=== PATIENT | female | born 1965 | race Caucasian/White ===

== ENCOUNTER 2020-07-20 19:42 | Emergency (ER) | payer OTHER ==
[~2020-07-20] VITALS: Ht 162.6 cm; Wt 92.0 kg
[2020-07-20] MEDS ORDERED: ALPRAZOLAM0.5 MG PO (19:55)
[2020-07-20] MEDS ORDERED: ZOFRAN4 MG PO (19:55)
[2020-07-20] MEDS ORDERED: RIZATRIPTAN10 MG PO (19:56)
[2020-07-20] MEDS ORDERED: HYDROCODON-ACE1 EA13 PO (19:56)
[2020-07-20] MEDS ORDERED: METHOCARBAMOL750 MG PO (19:56)
[2020-07-20] MEDS ORDERED: GABAPENTIN300 MG PO (19:56)
[2020-07-20] MEDS ORDERED: GABAPENTIN600 MG PO (19:57)
[2020-07-20] MEDS ORDERED: ZESTORETIC 20-1 EAC1 PO (19:57)
[2020-07-20] MEDS ORDERED: ZYRTEC10 MG PO (19:57)
[2020-07-20] MEDS ORDERED: PROPRANOLOL HCL20 MG PO (19:57)
[2020-07-20] MEDS ORDERED: MONTELUKAST SOD10 MG PO (19:58)
[2020-07-20] MEDS ORDERED: TOPIRAMATE50 MG PO (19:58)
[2020-07-20] MEDS ORDERED: WELLBUTRIN XL150 MG PO (19:58)
[2020-07-20] MEDS ORDERED: SIMVASTATIN20 MG PO (19:58)
== END 2020-07-20 20:33 | disposition home or self-care (01) ==
LOC: ED 19:42
DX: S61.211A Laceration without foreign body of left index finger without damage to nail, initial encounter (principal); E11.9 Type 2 diabetes mellitus without complications; I10 Essential (primary) hypertension; G43.909 Migraine, unspecified, not intractable, without status migrainosus; F17.200 Nicotine dependence, unspecified, uncomplicated; Z79.899 Other long term (current) drug therapy; Z79.891 Long term (current) use of opiate analgesic; W26.8XXA Contact with other sharp object(s), not elsewhere classified, initial encounter
CPT/HCPCS: 12001; 90471; 90715; 99282-25

== ENCOUNTER 2020-12-28 06:53 | Day surgery (SDC) | payer OTHER ==
[~2020-12-28] VITALS: Ht 162.6 cm; Wt 88.4 kg
[~2020-12-28 06:53] MED LIST: ALPRAZOLAM0.5 MG PO; GABAPENTIN300 MG PO; GABAPENTIN600 MG PO; HYDROCODON-ACE1 EA13 PO; METHOCARBAMOL750 MG PO; MONTELUKAST SOD10 MG PO; PROPRANOLOL HCL20 MG PO; RIZATRIPTAN10 MG PO; SIMVASTATIN20 MG PO; TOPAMAX100 MG PO; TOPIRAMATE50 MG PO; WELLBUTRIN XL150 MG PO; ZESTORETIC 20-1 EAC1 PO; ZOFRAN4 MG PO; ZYRTEC-D TABLE1 EACH PO; ZYRTEC10 MG PO
--- NOTE | 2020-12-28 08:51 | NUR ---
12/28/20 0851 Binta Woodruff 0848 PATIENT ARRIVES TO PACU AWAKE BUT VERY DROWSY. SLEEPING WHEN NOT STIMULATED. RESP EVEN AND UNLABORED, NC AT 3 LITERS, SATS >94%.
--- NOTE | 2020-12-29 07:46 | OR ---
[facility] [address], [place] [address] Signed DATE OF OPERATION: 12/28/2020 SURGEON: Xochitl Jefferson MD PREOPERATIVE DIAGNOSIS: 1. Father with rectal cancer at age 60. POSTOPERATIVE DIAGNOSES: 1. 4 mm polyps x2 at 80 cm. 2. 8 mm polyp at 10 cm (snare, tattoo). 3. 5 mm polyp at 32 cm. 4. Minimal to moderate sigmoid diverticulosis. PROCEDURE: Colonoscopy with hot biopsy, snare polypectomy and injection of tattoo. ESTIMATED BLOOD LOSS: None. INDICATIONS: Cassy is a 55-year-old female who is a diet-controlled prediabetic patient. She was asked to see me for her initial colonoscopy. Her father was first diagnosed with rectal cancer at age 60. He has been through several surgeries as well as chemo and radiation therapy. She has no lower GI complaints. She has never had a previous colonoscopy. I gave her a pamphlet on colonoscopy in the office. We had reviewed that in detail. She understands the nature of that test. There is risk including, but not limited to gas bloating, crampy abdominal pain, bleeding, perforation requiring surgery, and missed diagnosis. She also understands the need for IV conscious sedation. She had expressed understanding and wished to proceed. PROCEDURE NOTE: Cassy was taken into our endoscopy suite and placed in the left lateral decubitus position. She was given IV sedation with 6 mg of Versed and 100 mcg of fentanyl. A digital rectal exam was performed and this was unremarkable. The adult colonoscope was introduced and advanced under direct visualization of camera without difficulty into the cecum. Her prep was good. We could easily see the appendiceal orifice and the ileocecal valve. The scope was then slowly withdrawn. We took pictures throughout for photodocumentation. The above-mentioned polyps were taken out with the help of hot biopsy forceps. We did need the help of the snare for the polyp at 10 cm. We also left a tattoo at that area. We did not use the rigid proctoscope on this occasion. We did Electronically Signed By: XOCHITL JEFFERSON MD 12/29/20 0746 PATIENT NAME: CASSY WASHINGTON OPERATIVE REPORT DATE OF : 65 REPORT #: [id number] PHYSICIAN: XOCHITL JEFFERSON MD PCP: YOVANA CARTWRIGHT PA-C REPORT IS CONFIDENTIAL AND NOT TO BE RELEASED WITHOUT AUTHORIZATION [facility] [address], [place] [address] Signed see diverticula in her sigmoid colon. They were minimal to moderate in size. They were minimal to moderate in number and scattered about. The scope had been retroflexed in the rectum and there was no additional pathology noted above the anal canal. After this, the gas was suctioned out and the colonoscope removed. Cassy tolerated the procedure quite well. RECOMMENDATIONS: I will see Cassy back in my office in 7 to 14 days to review her results. MD CHANI Rosen/JULITOL /[id number] cc: MD Yovana Rosen PA-C Copies: XOCHITL JEFFERSON MD, CHLOE K PA-C ~ Electronically Signed By: XOCHITL JEFFERSON MD 12/29/20 0746 PATIENT NAME: CASSY WASHINGTON OPERATIVE REPORT DATE OF : 65 REPORT #: [id number] PHYSICIAN: XOCHITL JEFFERSON MD PCP: YOVANA CARTWRIGHT PA-C REPORT IS CONFIDENTIAL AND NOT TO BE RELEASED WITHOUT AUTHORIZATION
--- NOTE | 2020-12-29 16:01 | PATH ---
[facility] [address], [place] [address] Signed SPECIMEN(S): A COLON POLYP AT 8 CM X2 SPECIMEN(S): B COLON POLYP AT 10 CM SPECIMEN(S): C COLON POLYP AT 32 CM SPECIMEN SOURCE: A. COLON POLYP AT 8 CM X2 B. COLON POLYP AT 10 CM C. COLON POLYP AT 32 CM CLINICAL HISTORY: Screening colonoscopy. DX: Polyps, divertic. MICROSCOPIC DESCRIPTION: Histologic sections of all submitted blocks are examined by light microscopy. These findings, together with the gross examination, support the pathologic diagnosis. FINAL PATHOLOGIC DIAGNOSIS: A. Colon, polyp x2 at 8 cm, polypectomy: - Hyperplastic polyp. - Cauterized colonic mucosa with focal hyperplastic changes. - Negative for dysplasia or malignancy. B. Colon, polyp at 10 cm, polypectomy: - Tubular adenoma. - Negative for high-grade dysplasia or malignancy. C. Colon, polyp at 32 cm, polypectomy: - Tubular adenoma. - Negative for high-grade dysplasia or malignancy. NAL:smn:C2NR GROSS DESCRIPTION: Three specimens are received in three containers, labeled "TM." A. The specimen, labeled "TM, 1," and designated on the requisition "colon polyp at 8 cm," is received in formalin and consists of two wright soft tissue fragments that measure 0.3 cm in greatest dimension. The specimen is entirely submitted in cassette (A1). B. The specimen, labeled "TM, 2," and designated on the requisition "colon polyp at 10 cm," is received in formalin and consists of one polypoid, wright soft tissue fragment that measures 0.9 x 0.6 x 1.0 cm. The specimen is inked black, trisected and entirely submitted in cassette (B1). C. The specimen, labeled "TM, 3," and designated on the requisition "colon PATIENT NAME: RORY WASHINGTON PATHOLOGY DATE OF : 65 REPORT #: [id number] PHYSICIAN: [facility] PATHOLOGY PCP: MEI CARTWRIGHT PA-C REPORT IS CONFIDENTIAL AND NOT TO BE RELEASED WITHOUT AUTHORIZATION [facility] [address], [place] [address] Signed polyp at 32 cm," is received in formalin and consists of one wright soft tissue fragment that measures 0.3 cm in greatest dimension. The specimen is entirely submitted in cassette (C1). AT (under the direct supervision of a pathologist) The Gross Description was prepared using a voice recognition system. The report was reviewed for accuracy; however, sound-alike word errors, addition and/or deletions may occur. If there is any question about this report, please contact Client Services. PERFORMING LABORATORY: The technical component was performed by [facility], [address] [place] [address] (Clinical Engineering Manager: Delia Galindo MD; CLIA# [id number]). Professional interpretation was performed by [facility], [address] [address] (CLIA# [id number]). Diagnostician: Adriana Carrera MD Pathologist Electronically Signed 12/29/2020 Copies: ~ PATIENT NAME: RORY WASHINGTON PATHOLOGY DATE OF : 65 REPORT #: [id number] PHYSICIAN: KYLAH PATHOLOGY PCP: MEI CARTWRIGHT PA-C REPORT IS CONFIDENTIAL AND NOT TO BE RELEASED WITHOUT AUTHORIZATION
== END 2020-12-28 09:20 | disposition home or self-care (01) ==
LOC: OPS 06:53 → DS 06:53 → OPS 08:15 → DS 08:15 → OPS 09:20 → DS 12-30 06:45
PROVIDERS: ATTEND Colon & Rectal Surgery
PROC: 0DBE8ZX Excision of Large Intestine, Via Natural or Artificial Opening Endoscopic, Diagnostic (ICD-10-PCS; 2020-12-28)
PROC: 3E0H8KZ Introduction of Other Diagnostic Substance into Lower GI, Via Natural or Artificial Opening Endoscopic (ICD-10-PCS; 2020-12-28)
PROC: 0DBE8ZX Excision of Large Intestine, Via Natural or Artificial Opening Endoscopic, Diagnostic (ICD-10-PCS; principal; 2020-12-28 08:15)
DX: D12.6 Benign neoplasm of colon, unspecified (principal); K57.30 Diverticulosis of large intestine without perforation or abscess without bleeding; Z80.0 Family history of malignant neoplasm of digestive organs; E11.9 Type 2 diabetes mellitus without complications; I10 Essential (primary) hypertension; E78.5 Hyperlipidemia, unspecified; E66.9 Obesity, unspecified; Z68.33 Body mass index [BMI] 33.0-33.9, adult; Z91.030 Bee allergy status
CPT/HCPCS: 99153; G0500; J2250; J3010; J7121

== ENCOUNTER 2021-10-29 16:13 | Emergency (ER) | payer OTHER ==
[~2021-10-29] VITALS: Ht 162.6 cm; Wt 89.3 kg
--- OUTSIDE RECORDS SUMMARY | 2021-10-29 16:16 | XMS ---
PreManage Notification: RORY WASHINGTON Security Inspector Missile Events No recent Security Events currently on file CRITERIA MET - [employer] CARE PROVIDERS MEI CARTWRIGHT Physician Banquet Houseperson 06/30/2020-Current PHONE: [phone] Etienne has no Care Guidelines for this patient. EPilar VISIT COUNT (12 MO.) 1 [facility] TOTAL 1 NOTE: Visits indicate total known visits. ED/UCC VISIT TRACKING (12 MO.) 10/29/2021 16:15 [facility] [place] TYPE: Emergency COMPLAINT: - MULTIPLE COMPLAINTS INPATIENT VISIT TRACKING (12 MO.) No inpatient visits to display in this time frame [id number]
[2021-10-29] MEDS ORDERED: NORTRIPTYLINE H10 MG PO (17:03)
[2021-10-29] MEDS ORDERED: ZOLMITRIPTAN5 MG PO (17:03)
[2021-10-29] MEDS ORDERED: VITAMIN D21250 MCG (17:04)
== END 2021-10-30 00:40 | disposition home or self-care (01) ==
LOC: ED 16:13
DX: U07.1 COVID-19 (principal); E11.9 Type 2 diabetes mellitus without complications; I10 Essential (primary) hypertension; F17.200 Nicotine dependence, unspecified, uncomplicated; Z91.030 Bee allergy status; Z79.899 Other long term (current) drug therapy
CPT/HCPCS: 36415; 71045; 80053; 81001; 83605; 85025; 85060; 85379; 87502; A9270; C9803; J7030; J7121; U0003

== ENCOUNTER 2021-12-02 06:05 | Day surgery (SDC) | payer OTHER ==
[~2021-12-02] VITALS: Ht 162.6 cm; Wt 88.6 kg
[~2021-12-02 06:05] MED LIST changes: +NORTRIPTYLINE H10 MG PO; +VITAMIN D21250 MCG; +ZOLMITRIPTAN5 MG PO
[2021-12-02] MEDS ORDERED: HYDROCODON-ACE1 EA10 PO (08:23)
--- NOTE | 2021-12-02 09:16 | NUR ---
12/02/21 0916 Quin Ray 0822 PT ARRIVED IN PACU SLEEPY WITH NO C/O'S. R HAND ELEVATED ON PILLOW AND ICE PLACED. 0845 SITTING UP IN BED SIPPING ON WATER. 902 DC INSTRUCTIONS GIVEN. ALL QUESTIONS ANSWERED. LEFT VIA W/C WITH SLING IN PLACE.
--- NOTE | 2021-12-03 08:55 | OR ---
[facility] [address] [place], [place] [address] Signed DATE OF OPERATION: 12/02/2021 SURGEON: Cassy Wu MD PREOPERATIVE DIAGNOSIS: Carpal tunnel syndrome, right. POSTOPERATIVE DIAGNOSIS: Carpal tunnel syndrome, right. PROCEDURE PERFORMED: Carpal tunnel release, right. BRICK WHEELER: None. ANESTHESIA: Kerry block. TOURNIQUET TIME: 12 minutes. BRIEF HISTORY: Cassy is a 56-year-old female with pain and numbness in her hand. Nonoperative treatment was ineffective and she wished to proceed with operative treatment after nerve conduction studies confirmed significant carpal tunnel. The risks, benefits, and alternatives were discussed at length. She understands and wished to proceed. DESCRIPTION OF PROCEDURE: Once consent was obtained, she was taken to the operating room. After adequate anesthesia, she was left on day surgery bed and hand table was brought in. The arm was prepped and draped in a standard sterile fashion. The carpal tunnel was approached through a 1.5 cm incision in the distal wrist crease. This was carried through the skin and subcutaneous tissue. The palmaris longus was retracted and protected. The transverse carpal ligament was identified under loupe magnification and dissected free of overlying soft tissue proximally and distally. It was then transected using the tenotomy scissors and released proximally a cm and distally to the distal extent. This was palpated using a [place] and found to be completely released. The wound was copiously irrigated with normal saline, closed with 3-0 nylon and injected with 8 mL of 0.25% Marcaine plain. The wound was dressed with bacitracin, Adaptic, 4 x 8s, and gauze. She Electronically Signed By: CASSY WU MD 12/03/21 0855 PATIENT NAME: CASSY WASHINGTON OPERATIVE REPORT DATE OF : 65 REPORT #: [id number] PHYSICIAN: CASSY WU MD PCP: MEI CARTWRIGHT PA-C REPORT IS CONFIDENTIAL AND NOT TO BE RELEASED WITHOUT AUTHORIZATION [facility] [address] [place], [place] [address] Signed tolerated the procedure well. All sponge, needle, and instrument counts were correct. Cassy Wu MD BA/MODL /[id number] Copies: ~ Electronically Signed By: CASSY WU MD 12/03/21 0855 PATIENT NAME: CASSY WASHINGTON OPERATIVE REPORT DATE OF : 65 REPORT #: [id number] PHYSICIAN: CASSY WU MD PCP: MEI CARTWRIGHT PA-C REPORT IS CONFIDENTIAL AND NOT TO BE RELEASED WITHOUT AUTHORIZATION
== END 2021-12-02 09:03 | disposition home or self-care (01) ==
LOC: DS 06:05
PROVIDERS: ATTEND Specialist
PROC: 01N50ZZ Release Median Nerve, Open Approach (ICD-10-PCS; principal; 2021-12-02 09:30)
DX: G56.01 Carpal tunnel syndrome, right upper limb (principal); Z87.891 Personal history of nicotine dependence
CPT/HCPCS: J0690; J1885; J2704; J7121

== ENCOUNTER 2022-02-03 05:30 | Day surgery (SDC) | payer OTHER ==
[~2022-02-03] VITALS: Ht 162.6 cm; Wt 89.5 kg
[~2022-02-03 05:30] MED LIST changes: +HYDROCODON-ACE1 EA10 PO
[2022-02-03] MEDS ORDERED: HYDROCODON-ACE1 EA10 PO (07:30)
--- NOTE | 2022-02-03 07:33 | NUR ---
02/03/22 0733 Binta Woodruff 07 PATIENT ARRIVES TO PACU RESTING WITH EYES CLOSED. OPENS EYES AND ANSWERS QUESTIONS APPROPRIATELY WITH VERBAL STIMULI, BACK TO SLEEP WHEN NOT STIMULATED. RESP EVEN AND UNLABORED, SATS 100% ON 6L VIA MASK. OXYGEN OFF.
--- NOTE | 2022-02-06 08:36 | OR ---
[facility] [address] [place], [place] [address] Signed DATE OF OPERATION: 02/03/2022 SURGEON: Cassy Wu MD PREOPERATIVE DIAGNOSIS: Carpal tunnel syndrome, left. POSTOPERATIVE DIAGNOSIS: Carpal tunnel syndrome, left. PROCEDURE PERFORMED: Left carpal tunnel release. BULLDOZER OPERATOR: None. ANESTHESIA: Kerry block. TOURNIQUET TIME: 20 minutes. BRIEF HISTORY: Cassy is a 56-year-old female with bilateral carpal tunnel. She had undergone successful right release and wished to proceed with the left. Risks and benefits of operative treatment were discussed. Once again, she elected to proceed. Once consent was obtained, she was taken to the operating room. After adequate anesthesia, she was kept on day surgery bed on the hand table. The hand was prepped and draped in a standard sterile fashion after establishment of the Kerry block. The carpal tunnel was approached through a 1.5 cm incision in the distal wrist crease. This was carried through skin and subcutaneous tissue and directly down onto the transverse carpal ligament. The remnants of the palmaris longus were identified, retracted, and protected. The transverse carpal ligament was dissected free of overlying soft tissue under loupe magnification, the ligament was then transected proximally a centimeter and distally to the distal extent. This was done with care taken to protect the median nerve. The canal was palpated and found to be completely released. The wound was copiously irrigated with normal saline, closed with 3-0 nylon and injected with 5 mL of 0.25% plain Marcaine. It was then dressed with bacitracin, Adaptic, 4x8's, and gauze. She tolerated the procedure well. All sponge, needle, and instrument counts were correct. Electronically Signed By: CASSY WU MD 02/06/22 0836 PATIENT NAME: CASSY WASHINGTON OPERATIVE REPORT DATE OF : 65 REPORT #: [id number] PHYSICIAN: CASSY WU MD PCP: MEI CARTWRIGHT PA-C REPORT IS CONFIDENTIAL AND NOT TO BE RELEASED WITHOUT AUTHORIZATION [address] [place] [address] Signed Cassy Wu MD BA/MODL /[id number] Copies: ~ Electronically Signed By: CASSY WU MD 02/06/22 0836 PATIENT NAME: CASSY WASHINGTON OPERATIVE REPORT DATE OF : 65 REPORT #: [id number] PHYSICIAN: CASSY WU MD PCP: MEI CARTWRIGHT PA-C REPORT IS CONFIDENTIAL AND NOT TO BE RELEASED WITHOUT AUTHORIZATION
== END 2022-02-03 08:00 | disposition home or self-care (01) ==
LOC: DS 05:30
PROVIDERS: ATTEND Specialist
PROC: 01N50ZZ Release Median Nerve, Open Approach (ICD-10-PCS; principal; 2022-02-03 07:30)
DX: G56.02 Carpal tunnel syndrome, left upper limb (principal); Z91.030 Bee allergy status; E11.9 Type 2 diabetes mellitus without complications; Z90.710 Acquired absence of both cervix and uterus
CPT/HCPCS: J0690; J2250; J2405; J2704; J7121

== ENCOUNTER 2023-03-22 22:05 | Emergency (ER) | payer OTHER ==
[~2023-03-22] VITALS: Ht 162.6 cm; Wt 89.0 kg
--- OUTSIDE RECORDS SUMMARY | ~2023-03-22 | XMS | Continuity of Care Document ---
Demographics + + + | Address | [address] | | | [place] [address] | + + + | Preferred Language | Unknown | + + + | Marital Status | Never | + + + | Druze Affiliation | Unknown | + + + | Race | White | + + + | Ethnic Group | Not or | + + + Author + + + | Author | [facility] | + + + | Organization | [facility] | + + + | Address | [address] | | | [place] [address] | + + + | Phone | | + + + Care Team Providers + + + + | Care Mine Deputy Name | Role | Phone | + + + + Unavailable | Unavailable | + + + + Unavailable | Unavailable | + + + + Unavailable | Unavailable | + + + + Allergies No information. Encounters No information. Functional Status No information. Immunizations No information. Medications + + + + | date | description | facility | + + + + | 2023-01-18 00:00 | alprazolam 0.5 mg oral | [facility] | | | tablet | Office Building | + + + + | 2023-01-18 00:00 | Drug or medicament | [facility] | | | (substance) | Office Building | + + + + | 2023-01-18 00:00 | calcium carbonate 1500 mg | [facility] | | | (calcium 600 mg) / vitamin | Office Building | | | d3 10 mcg (400 unt) oral | | | | tablet | | + + + + | 2023-01-17 00:00 | onabotulinumtoxina 100 unt | [facility] | | | injection [botox] | Office Building | + + + + Problems + + + + | date | description | facility | + + + + | 2023-01-17 11:16:06 | Chronic migraine without | [facility] | | | aura, intractable, without | [facility] | | | status migrainosus | | + + + + Procedures + + + + | date | description | facility | + + + + | 2023-01-17 00:00 | NV DESTROY NERVE,MSCL | [facility] | | | INNERVATED, BILAT | Office Building | + + + + Results/Labs No information. Social History + + + + | date | description | facility | + + + + | 2023-01-18 00:00 | Current smoker | [facility] | | | | Office Building | + + + + Vital Signs + + +---------+---------+ | date | measurement | value | units | + + +---------+---------+ | 2023-01-17 00:00 | BMI | 33.64 | kg/m2 | + + +---------+---------+ | 2023-01-17 00:00 | BP_diastolic | 60 | mmHg | + + +---------+---------+ | 2023-01-17 00:00 | BP_systolic | 90 | mmHg | + + +---------+---------+ | 2023-01-17 00:00 | heart_rate | 78 | /min | + + +---------+---------+ | 2023-01-17 00:00 | height_metric | 162.6 | cm | + + +---------+---------+ | 2023-01-17 00:00 | height_standard | 64.02 | in | + + +---------+---------+ | 2023-01-17 00:00 | weight_metric | 88.91 | kg | + + +---------+---------+ | 2023-01-17 00:00 | weight_standard | 196 | lb | + + +---------+---------+"
[2023-03-23 01:54] VITALS: BP 118/76
== END 2023-03-23 01:55 | disposition home or self-care (01) ==
LOC: ED 22:05
DX: S63.502A Unspecified sprain of left wrist, initial encounter (principal); I10 Essential (primary) hypertension; F17.200 Nicotine dependence, unspecified, uncomplicated; Z91.030 Bee allergy status; Z79.899 Other long term (current) drug therapy; W01.0XXA Fall on same level from slipping, tripping and stumbling without subsequent striking against object, initial encounter
CPT/HCPCS: 73110; 99283-25; A9270

== ENCOUNTER 2023-05-17 10:36 | Emergency (ER) | payer OTHER ==
[~2023-05-17] VITALS: Ht 162.6 cm; Wt 92.6 kg
--- OUTSIDE RECORDS SUMMARY | ~2023-05-17 | XMS | Continuity of Care Document ---
Demographics + + + | Address | [address] | | | [place] [address] | + + + | Preferred Language | Unknown | + + + | Marital Status | Never | + + + | Anabaptist Affiliation | Unknown | + + + | Race | White | + + + | Ethnic Group | Not or | + + + Author + + + | Author | [facility] | + + + | Organization | [facility] | + + + | Address | [address] | | | [place] [address] | + + + | Phone | | + + + Care Team Providers + + + + | Care Commercial Loan Manager Name | Role | Phone | + [...] facility | + + + + | 2023-03-12 00:00 | vitamin b2 100 mg oral | [facility] | | | tablet | Office Building | + + + + | 2023-04-12 00:00 | alprazolam 0.5 mg oral | [facility] | | | tablet | Office Building | + + + + | 2023-04-12 00:00 | Drug or medicament | [facility] | | | (substance) | Office Building | + + + + | 2023-04-12 00:00 | calcium carbonate 1500 mg | [facility] | | | (calcium 600 mg) / vitamin | Office Building | | | d3 10 mcg (400 unt) oral | | | | tablet | | + + + + | 2023-04-11 00:00 | onabotulinumtoxina 100 unt | [facility] | | | injection [botox] | Office Building | + + + + Problems + + + + | date | description | facility | + + + + | 2023-04-11 10:55:03 | Chronic migraine without | [facility] | | | aura, intractable, without | [facility] | | | status migrainosus | | + + + + Procedures + + + + | date | description | facility | + + + + | 2023-04-11 00:00 | CA DESTROY NERVE,MSCL | [facility] | | | INNERVATED, BILAT | Office Building | + + + + Results/Labs No information. Social History + + + + | date | description | facility | + + + + | 2023-04-12 00:00 | Current smoker | [facility] | | | | Office Building | + + + + Vital Signs + + +---------+---------+ | date | measurement | value | units | + + +---------+---------+ | 2023-04-11 00:00 | BMI | 32.96 | kg/m2 | + + +---------+---------+ | 2023-04-11 00:00 | BP_diastolic | 80 | mmHg | + + +---------+---------+ | 2023-04-11 00:00 | BP_systolic | 120 | mmHg | + + +---------+---------+ | 2023-04-11 00:00 | heart_rate | 64 | /min | + + +---------+---------+ | 2023-04-11 00:00 | height_metric | 162.6 | cm | + + +---------+---------+ | 2023-04-11 00:00 | height_standard | 64.02 | in | + + +---------+---------+ | 2023-04-11 00:00 | weight_metric | 87.09 | kg | + + +---------+---------+ | 2023-04-11 00:00 | weight_standard | 192 | lb | + + +---------+---------+"
--- OUTSIDE RECORDS SUMMARY | 2023-05-17 10:38 | XMS ---
PreManage Notification: RORY WASHINGTON Security Stars Analytical Lead Events No recent Security Events currently on file [facility] There are no care providers on record at this time. Etienne has no Care Guidelines for this patient. Toni VISIT COUNT (12 MO.) 2 [facility] Due[facility] TOTAL 2 NOTE: Visits indicate total known visits. ED/C VISIT TRACKING (12 MO.) 05/17/2023 10:36 [facility] TYPE: Emergency COMPLAINT: - COLD SUMPTOMS 03/22/2023 22:05 [facility] TYPE: Emergency COMPLAINT: - LT WRIST INJURY DIAGNOSES: - Bee allergy status - Essential (primary) hypertension - Fall on same level from slipping, tripping and stumbling without subsequent striking against object, initial encounter - Nicotine dependence, unspecified, uncomplicated - Other senior living (current) drug therapy - Pain in left wrist - Unspecified sprain of left wrist, initial encounter INPATIENT VISIT TRACKING (12 MO.) 04/19/2023 05:32 [facility] Aidee GOMEZ ([facility]) TYPE: Surgical Services DIAGNOSES: - Arthrodesis status - Essential (primary) hypertension - Other idiopathic scoliosis, lumbar region - Other intervertebral disc degeneration, lumbar region - Other intervertebral disc displacement, lumbar region - Radiculopathy, lumbar region - Scoliosis, unspecified - Spinal stenosis, lumbar region with neurogenic claudication - Spondylosis without myelopathy or radiculopathy, lumbar region - Type 2 diabetes mellitus without complications [id number]
[2023-05-17] MEDS ORDERED: OXYCODONE-ACET1 EAC1 PO (10:50)
[2023-05-17] MEDS ORDERED: BENZONATATE100 MG PO (10:58)
[2023-05-17 11:11] VITALS: BP 155/81
== END 2023-05-17 11:12 | disposition home or self-care (01) ==
LOC: ED 10:36
DX: J10.1 Influenza due to other identified influenza virus with other respiratory manifestations (principal); M54.9 Dorsalgia, unspecified; I10 Essential (primary) hypertension; E11.9 Type 2 diabetes mellitus without complications; F41.9 Anxiety disorder, unspecified; F32.A Depression, unspecified; F17.200 Nicotine dependence, unspecified, uncomplicated; Z96.7 Presence of other bone and tendon implants; Z91.030 Bee allergy status; Z79.899 Other long term (current) drug therapy
CPT/HCPCS: 99283

== ENCOUNTER 2024-01-16 18:53 | Emergency (ER) | payer OTHER ==
[~2024-01-16] VITALS: Ht 162.6 cm; Wt 98.6 kg
--- OUTSIDE RECORDS SUMMARY | ~2024-01-16 | XMS | Continuity of Care Document ---
Demographics + + + | Address | [address] | | | [place] [address] | + + + | Preferred Language | Unknown | + + + | Marital Status | Never | + + + | Yarsani Affiliation | Unknown | + + + | Race | White | + + + | Ethnic Group | Unknown | + + + Author + + + | Author | [facility] | + + + | Organization | [facility] | + + + | Address | [address] | | | [place] [address] | + + + | Phone | | + + + Care Team Providers + + + + | Care Nematologist Name | Role | Phone | + + + + Unavailable | Unavailable | + + + + Allergies No information. Encounters No information. Functional Status No information. Immunizations No information. Medications No information. Problems + + + + | date | description | facility | + + + + | 2023-12-25 10:47:53 | Chronic migraine without | [facility] | | | aura, intractable, without | [facility] | | | status migrainosus | | + + + + Procedures No information. Results/Labs No information. Social History +--------+ + + | date | description | facility | +--------+ + + Vital Signs No information."
[~2024-01-16 18:53] MED LIST changes: +BENZONATATE100 MG PO; +OXYCODONE-ACET1 EAC1 PO
[2024-01-16 19:07] LABS: BASOPHILS 0.9 % (0-2); EOSINOPHILS 2.5 % (0-6); HEMATOCRIT 39.6 % (35.0-50.0); HEMOGLOBIN 13.4 g/dL (12.0-18.0); LYMPHOCYTES 47.9 % (24-44); MCHC 33.9 g/dl (30-36); MCV 88.7 fl (81-99); MONOCYTES 7.1 % (0-12); NEUTROPHILS 41.6 % (39-80); PLATELET COUNT 214 K/uL (140-440); RBC 4.47 M/ul (4.3-5.7)
[2024-01-16] MEDS ORDERED: NITROGLYCERIN 0.4 MG SUBL SL PRN (19:15)
[2024-01-16] MEDS ORDERED: ASPIRIN 81 MG CHEW PO ONE (19:15)
[2024-01-16 19:26] LABS: ALBUMIN 3.3 g/dL (3.4-5.0); ALBUMIN/GLOBULIN RATIO 0.92 (1.1-2.4); ALKALINE PHOSPHATASE 133 U/L (46-116); ALT (SGPT) 20 U/L (14-59); ANION GAP 12.7 (7-21); AST (SGOT) 19 U/L (15-37); BILIRUBIN, TOTAL 0.2 ng/dL (0.2-1.0); BUN/CREATININE RATIO 9.09 (6.0-28.6); CARBON DIOXIDE 30 mmol/L (21-32); CHLORIDE 106 mmol/L (98-107); CREATININE, SERUM 0.99 mg/dL (0.55-1.02); GLOMERULAR FILTRATION RATE,EST 66 mL/min (>60); MAGNESIUM 2.1 mg/dL (1.8-2.4); POTASSIUM 3.7 mmol/L (3.5-5.1); PROTEIN, TOTAL 6.9 g/dL (6.4-8.2); UREA NITROGEN 9 mg/dL (7-18)
[2024-01-16] MEDS ORDERED: ONDANSETRON ODT8 MG PO (21:44)
[2024-01-16] MEDS ORDERED: HYDROCODON-ACE1 EA10 PO (21:44)
[2024-01-16] MEDS ORDERED: HYDROCODONE BIT/ACETAMINOPHEN 5/325 MG 1 TAB HOME.PACK PO ONE (22:00)
[2024-01-16] MEDS ORDERED: ONDANSETRON 4 MG HOME.PACK SL ONE (22:00)
[2024-01-16 22:06] VITALS: BP 156/80
--- NOTE | 2024-01-17 21:41 | EKG ---
[facility] [address] [facility] [place] [address] Signed Normal sinus rhythm Nonspecific T wave abnormality Abnormal ECG When compared with ECG of 29-NOV-2021 09:46, Nonspecific T wave abnormality now evident in Lateral leads Confirmed by Philippe Romo MD ([id number]) on 01/17/2024 9:41:28 PM Electronically Signed By: PHILIPPE ROMO DO 01/17/242140 PATIENT NAME: RORY WASHINGTON Electrocardiogram DATE OF : 65 PHYSICIAN: PHILIPPE ROMO DO REPORT #: [id number] REPORT IS CONFIDENTIAL AND NOT TO BE RELEASED WITHOUT AUTHORIZATION
== END 2024-01-16 22:06 | disposition home or self-care (01) ==
LOC: ED 18:53
PROVIDERS: Family Medicine
DX: K85.90 Acute pancreatitis without necrosis or infection, unspecified (principal); R91.8 Other nonspecific abnormal finding of lung field; I77.819 Aortic ectasia, unspecified site; E11.9 Type 2 diabetes mellitus without complications; G43.909 Migraine, unspecified, not intractable, without status migrainosus; F17.200 Nicotine dependence, unspecified, uncomplicated; Z91.038 Other insect allergy status; Z79.899 Other long term (current) drug therapy
CPT/HCPCS: 36415; 71045; 71260; 80053; 83690; 83735; 84484; 85025; 85379; 93005; 93010; 99285-25; A9270; Q9967

== ENCOUNTER 2024-07-09 19:55 | Emergency (ER) | payer OTHER ==
[~2024-07-09] VITALS: Ht 162.6 cm; Wt 98.0 kg
[~2024-07-09 19:55] MED LIST changes: +ONDANSETRON ODT8 MG PO
[2024-07-09] MEDS ORDERED: IBUPROFEN 800 MG TAB PO ONE (22:45)
[2024-07-09 23:00] LABS: BASOPHILS 0.6 % (0-2); EOSINOPHILS 1.5 % (0-6); HEMATOCRIT 41.8 % (35.0-50.0); HEMOGLOBIN 14.2 g/dL (12.0-18.0); LYMPHOCYTES 42.4 % (24-44); MCH 29.8 (27-36); MCV 87.7 fl (81-99); MONOCYTES 6.3 % (0-12); NEUTROPHILS 49.2 % (39-80); PLATELET COUNT 201 K/uL (140-440); RBC 4.77 M/ul (4.3-5.7); RDW 13.4 (10.5-15.0)
[2024-07-09 23:16] LABS: ALBUMIN 3.5 g/dL (3.4-5.0); ALBUMIN/GLOBULIN RATIO 1.03 (1.1-2.4); ANION GAP 4.9 (7-21); BILIRUBIN, TOTAL 0.2 mg/dL (0.2-1.0); BUN/CREATININE RATIO 16.53 (6.0-28.6); CALCIUM 9.8 mg/dL (8.5-10.1); CREATININE, SERUM 1.27 mg/dL (0.55-1.02); POTASSIUM 3.9 mmol/L (3.5-5.1); PROTEIN, TOTAL 6.9 g/dL (6.4-8.2)
[2024-07-09 23:39] VITALS: BP 169/94
== END 2024-07-09 23:41 | disposition home or self-care (01) ==
LOC: ED 19:55
PROVIDERS: Internal Medicine
DX: S46.912A Strain of unspecified muscle, fascia and tendon at shoulder and upper arm level, left arm, initial encounter (principal); X58.XXXA Exposure to other specified factors, initial encounter; M70.822 Other soft tissue disorders related to use, overuse and pressure, left upper arm; E11.9 Type 2 diabetes mellitus without complications; I10 Essential (primary) hypertension; F17.200 Nicotine dependence, unspecified, uncomplicated; Z91.030 Bee allergy status; Z79.899 Other long term (current) drug therapy
CPT/HCPCS: 36415; 73080; 80053; 84550; 85025; 86140; 99283; A9270

== ENCOUNTER 2024-12-04 16:12 | Emergency (ER) | payer OTHER ==
[~2024-12-04] VITALS: Ht 162.6 cm; Wt 97.9 kg
[~2024-12-04 16:12] MED LIST changes: +CALCIUM + D3 E1 EACH PO; +VENTOLIN HFA18 GM INH; +[UNRECOGNIZED DRUG - OTHER] PO
--- OUTSIDE RECORDS SUMMARY | 2024-12-04 16:19 | XMS ---
PreManage Notification: RORY WASHINGTON Security Cosmetic Sales Advisor Events No recent Security Events currently on file CRITERIA MET - [facility] - 2 Visits in 30 Days CARE PROVIDERS There are no care providers on record at this time. Etienne has no Care Guidelines for this patient. Toni VISIT COUNT (12 MO.) [facility] NOTE: Visits indicate total known visits. [place] [place] (12 MO.) 12/04/2024 16:13 [facility] [place] TYPE: Emergency COMPLAINT: - FINGER LACERATION 11/16/2024 19:03 [facility] [place] TYPE: Emergency COMPLAINT: - KNEE INJURY DIAGNOSES: - Activity, other involving water and watercraft - Bee allergy status - Essential (primary) hypertension - Nicotine dependence, unspecified, uncomplicated - Other cause of strike by thrown, projected or falling object, initial encounter - Pain in right knee - Sprain of unspecified site of right knee, initial encounter - Type 2 diabetes mellitus without complications 07/09/2024 19:56 [facility] [place] TYPE: Emergency COMPLAINT: - ELBOW PAIN DIAGNOSES: - Bee allergy status - Essential (primary) hypertension - Exposure to other specified factors, initial encounter - Nicotine dependence, unspecified, uncomplicated - Other shelter (current) drug therapy - Other soft tissue disorders related to use, overuse and pressure, left upper arm - Pain in left elbow - Strain of unspecified muscle, fascia and tendon at shoulder and upper arm level, left arm, initial encounter - Type 2 diabetes mellitus without complications 01/16/2024 18:53 [facility] [place] TYPE: Emergency COMPLAINT: - CHEST PAIN DIAGNOSES: - Acute pancreatitis without necrosis or infection, unspecified - Aortic ectasia, unspecified site - Migraine, unspecified, not intractable, without status migrainosus - Nicotine dependence, unspecified, uncomplicated - Other chest pain - Other insect allergy status - Other intermediate project manager (current) drug therapy - Other nonspecific abnormal finding of lung field - Type 2 diabetes mellitus without complications INPATIENT VISIT TRACKING (12 MO.) No inpatient visits to display in this time frame [id number]
[2024-12-04 17:55] VITALS: BP 182/88
== END 2024-12-04 17:56 | disposition home or self-care (01) ==
LOC: ED 16:12
DX: S61.215A Laceration without foreign body of left ring finger without damage to nail, initial encounter (principal); E11.9 Type 2 diabetes mellitus without complications; I10 Essential (primary) hypertension; F17.200 Nicotine dependence, unspecified, uncomplicated; W26.0XXA Contact with knife, initial encounter; Z91.030 Bee allergy status; Z79.899 Other long term (current) drug therapy
CPT/HCPCS: 12001; 99282